=== PATIENT | male | born 1980 | race American Indian/Alaskan Native ===

== ENCOUNTER 2017-07-05 00:29 | Emergency (ER) | payer OTHER, BC ==
[2017-07-05 00:39] VITALS: BP 123/77
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
[2017-07-05] MEDS ORDERED: NORCO 5/325 PO ONE (04:20)
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
== END 2017-07-05 05:41 | disposition home or self-care (01) ==
LOC: ED 00:29
DX: S30.810A Abrasion of lower back and pelvis, initial encounter (principal); M54.2 Cervicalgia; F17.200 Nicotine dependence, unspecified, uncomplicated; V89.2XXA Person injured in unspecified motor-vehicle accident, traffic, initial encounter; Y93.89 Activity, other specified; Y92.89 Other specified places as the place of occurrence of the external cause; Y99.8 Other external cause status
CPT/HCPCS: 71046; 72125; 74176; 99284